=== PATIENT | male | born 1985 | race Caucasian/White ===

== ENCOUNTER 2021-07-14 03:45 | Emergency (ER) | payer OTHER, SELFPAY ==
[2021-07-14] VITALS (11 sets, daily range): BP systolic 138–140; BP diastolic 92–98; PULSE 71–94; RESP 12–19; TEMP 36.7; O2SAT 92–99
--- NOTE | ~2021-07-14 | XR_ITS ---
XR chest 1V portable 07/14/2021 04:15 Indication: Confusion Procedure: AP portable chest Comparison: No prior studies for comparison. Findings: There is a linear infiltrate in the right lung base which most likely represent atelectasis or scarring. Heart size normal. No focal pneumonia, edema, pleural effusion or pneumothorax. No acut e osseous abnormality. Impression: 1: Linear infiltrate right lung base, most likely atelectasis or scarring. Reviewed, dictated and finalized at location A. Impression: 1: Linear infiltrate right lung base, most likely atelectasis or scarring.
--- NOTE | ~2021-07-14 | CT_ITS ---
EXAMINATION: CT brain wo con DATE: 07/14/2021 03:57 INDICATION: Sudden confusion, speech difficulty TECHNIQUE: Computed tomography (CT) of the head was performed without intravenous contrast. The mA wa s adjusted according to patient size. Iterative reconstruction technique was employed. Exam dose: 60 5.33 mGy-cm total exam DLP. COMPARISON: None FINDINGS: Mild cerebral atherosclerosis. No intracranial mass lesion or hemorrhage or cerebrovascular accident is detected. No midline shift o r mass effect. Normal caruso-white matter differentiation. Normal ventricular size. No subdural or epidural hematoma is detected. Minimal soft tissue thickening of the ethmoid air cells, primarily in the posterior left ethmoid aguilar on. The included paranasal sinuses and the mastoid air cells otherwise are unremarkable. No fracture or bone destruction of the cranial vault. IMPRESSION: No significant intracranial abnormality Reviewed, dictated and finalized at [facility]. Reviewed, dictated and finalized at location A.
--- NOTE | ~2021-07-14 | CT_ITS ---
EXAMINATION: CTA brain DATE: 07/14/2021 15:39 CDT INDICATION: Confusion. Speech difficulty. TECHNIQUE: Computed tomographic angiography (CTA) of the head was performed without and with 100 mL O mnipaque-350 intravenous contrast. The dose-length product was 1592.05 mGy-cm. Volume-rendered and ma ximum intensity projection 3D reconstructions of the intracranial arteries were created by the techno logist on a separate workstation. COMPARISON: CT brain dated 07/14/2021. FINDINGS: The carotid arteries are unremarkable. The anterior, middle and posterior cerebral arteries are symmetric without evidence for significant stenosis, occlusion or aneurysm. There is a dominant right vertebral artery. No evidence for aneurysm of the basilar artery. IMPRESSION: 1. No significant abnormality of the intracranial arteries. Reviewed, dictated and finalized at location A.
--- NOTE | 2021-07-14 03:47 | ECG_ITS ---
Measurements Intervals [place] Rate: 80 P: 35 VA: 134 QRS: 5 QRSD: 90 T: 70 QT: 375 QTc: 434 Interpretive Statements SINUS RHYTHM NORMAL ECG Electronically Signed On 07-14-2021 7:14:28 CDT by Cr Summers D.O.
--- NOTE | 2021-07-14 03:57 | PC.NURSE ---
bgc 108
[2021-07-14 04:09] LABS: Base Excess ABG -0.3 mmol/L (0-2); Carboxyhemoglobin 0.1 % (0-1.5); HCO3 ABG 23.5 mmol/L (23-29); Methemoglobin ABG 0.4 % (0-1.5); Oxygen Saturation ABG 94.9 % (95-97); Oxyhemoglobin 94.4 % (94-100); PCO2 ABG 36.1 mmHg (35-45); PO2 ABG 70.8 mmHg (80-90); Reduced Hemoglobin 5.1 % (0-1.5); Total Hemoglobin 15.1 g/dL (12.0-18.0); pH ABG 7.43 (7.35-7.45)
[2021-07-14 04:15] LABS: Device ROOM AIR; Modified Allen's Test Pass; Site Drawn LEFT RADIAL
[2021-07-14 04:18] LABS: Basophils Absolute Auto 0.07 K/mm3 (0.00-0.10); Eosinophils Absolute Auto 0.33 K/mm3 (0.02-0.50); Eosinophils Percent Auto 4.7 % (1.0-6.0); Hematocrit 41.5 % (40.0-54.0); Hemoglobin 14.4 g/dL (14.0-18.0); Immature Granulocyte Absolute 0.08 K/mm3 (0.00-0.00); Immature Granulocyte Percent A 1.1 % (0.0-0.0); Mean Corpuscular HGB Conc 34.7 g/dL (32.0-36.0); Mean Corpuscular Volume 83.7 fL (78.0-102.0); Monocytes Percent Auto 8.5 % (2.0-11.0); Neutrophils Absolute Auto 2.6 K/mm3 (1.7-7.2); Neutrophils Percent Auto 37.7 % (50.0-70.0); Platelet Count Result 189 K/mm3 (150-420); Red Blood Count 4.96 M/mm3 (4.70-6.10); Red Cell Distribution Width 12.1 % (11.6-14.4)
[2021-07-14 04:27] LABS: INR 0.9; Partial Thromboplastin Time 25.6 SEC (23.90-30.70); Prothrombin Time 10.1 Seconds (9.50-12.10)
[2021-07-14 04:34] LABS: Lactic Acid Reflex 1.3 mmol/L (0.4-2.0)
[2021-07-14 04:38] LABS: Alanine Aminotransferase 93 U/L (16-63); Albumin Level 3.7 g/dL (3.4-5.0); Alkaline Phosphatase 77 U/L (46-116); Ammonia 15 umol/L (11-32); Anion Gap 10 mmol/L (8-16); Aspartate Amino Transferase 29 U/L (15-37); Bilirubin,Total 0.4 mg/dL (0.00-1.00); Blood Urea Nitrogen 14 mg/dL (7-18); Calcium 8.1 mg/dL (8.5-10.1); Carbon Dioxide 24 mmol/L (21-32); Chloride 106 mmol/L (98-108); Estimated Glomerular Filt Rate > 60; Glucose 121 mg/dL (70-99); Osmolality Calculated 291 mOsm/kg (285-295); Potassium 3.5 mmol/L (3.5-5.1); Sodium 140 mmol/L (136-145); Total Protein 6.9 g/dL (6.4-8.2); Troponin I 5.5 ng/L (0.00-60.4)
[2021-07-14 04:39] LABS: Ethanol < 3 mg/dL (0-6)
--- NOTE | 2021-07-14 04:47 | ED.NEUROSD ---
HPI - Neuro Symptoms/Deficit General Chief Complaint: Suspected CVA Stated Complaint: Possiable CVA Time Seen by Provider: 07/14/21 03:46 Source: family and RN notes reviewed Mode of arrival: wheelchair Limitations: clinical condition History of Present Illness Onset (ago): minute(s) (15) Last Observed Normal: 03:30 Timing confirmed by: spouse History of same: Yes Severity: severe Quality: other (pt unable to express his thoughts, no motor deficits) Relieving factors: none Exacerbating factors: none Context: sudden onset On Anticoagulants: Yes (aspirin daily 81mg) Associated symptoms: confusion Treatments Prior to Arrival: none Related Data Home Medications Medication Instructions Recorded Confirmed albuterol sulfate 90 mcg/actuation 90 inh inhalation DAILY 07/14/21 07/14/21 aerosol inhaler amoxicillin 875 mg-potassium 875 tablet PO DAILY 07/14/21 clavulanate 125 mg tablet atorvastatin 10 mg tablet 10 tablet PO DAILY 07/14/21 07/14/21 Allergies Allergy/AdvReac Type Severity Reaction Status Date / Time No Known Allergies Allergy Verified 07/14/21 04:37 Review of Systems Review of Systems: All systems reviewed & are unremarkable except as noted in HPI and below ROS unobtainable: Yes other (per spouse.) PMFSH Past Medical History Medical History CVA (cerebral vascular accident) Exam Const: General: cooperative, healthy appearing, no acute distress and confusion Nutritional Appearance: well nourished Orientation/consciousness: confusion and Other orientation findings (pt was unable to explain his answers) Limitations: no limitations HENMT: Head: normal to inspection, No palpable skull fracture present, normocephalic and atraumatic Ears: hearing grossly normal bilaterally, external ears normal, TM's normal bilaterally and EAC's normal General nose exam: Normal external nose present and Normal nares present Face and sinus: normal facial exam and sinuses nontender Mouth: Yes Normal oral and palatal mucosa present, Yes lip normal, Yes tongue normal, Yes oropharynx normal and Yes moist mucous membranes Teeth and gingiva: dentition normal and gingiva normal Throat: posterior oropharynx normal and tonsils normal Eyes: General: appearance normal, both eyes and all related structures Alignment and Position: alignment normal and position normal Periorbital: periorbital findings normal Eyelids: eyelids normal and no eyelid abnormalities Conjunctivae: conjunctivae normal Sclera: sclerae normal Cornea: corneas normal Pupils: Equal, round and reactive pupils present and Pupil accommodation reflex normal EOM: EOMs intact bilaterally Direct Ophthalmoscopy: normal light reflex and no papilledema Neck: Neck: normal visual inspection, full ROM, no lymphadenopathy, no meningeal signs and trachea midline Thyroid: thyroid normal Lymphatic: no lymphadenopathy noted Chest: Chest palpation & inspection: normal inspection of the chest and normal palpation of entire chest wall Resp: Effort & Inspection: normal respiratory effort, Actively coughing and decreased respiratory effort Auscultation: clear to auscultation bilaterally Cardio: Jugular venous distension: no JVD Palpation: normal PMI Rate: regular rate Rhythm: regular rhythm Heart sounds: S1 normal heart sound present and S2 normal heart sound present Peripheral pulses: Peripheral pulses 2+ throughout GI: Inspection: normal to inspection Auscultation: normal bowel sounds : General: Yes bladder normal to inspection and Yes bladder normal to palpation Back/Spine/Pelvis: Back: no CVA tenderness Cervical Spine: normal cervical lordosis and cervical ROM normal Thoracic/Lumbar Spine: thoracic and lumbar spine normal to inspection, thoraco-lumbar ROM normal and other (no acute motor abnormality.) Sacrum: no tenderness Coccyx: no tenderness Skin: General skin exam: normal color Neuro: General: patient
[2021-07-14] MEDS: SODIUM CHLORIDE 0.9% IV 1,000 ML 999 ML IV CONT (04:48)
[2021-07-14 05:09] LABS: SARS-CoV-2 Ag Negative (Negative)
--- NOTE | 2021-07-14 05:20 | PC.NURSE ---
arch on site
--- NOTE | 2021-07-14 05:28 | PC.NURSE ---
pt transfered on [facility]
== END 2021-07-14 05:28 | disposition short-term general hospital (02) ==
PROVIDERS: Emergency Provider Emergency Medicine
DX: I63.9 Cerebral infarction, unspecified (principal); Z20.822 Contact with and (suspected) exposure to COVID-19
CPT/HCPCS: 36415; 36600; 70450; 70496; 71045; 80053; 80307; 82140; 82375; 82805; 82948; 83050; 83605; 84484; 85025; 85610; 85730; 87426; 93005; 96361; 96374; 99284; C9803; J2997; J7030; Q9967